=== PATIENT | male | born 1975 | race Caucasian/White ===

== ENCOUNTER 2022-07-07 18:41 | Emergency (ER) | payer OTHER ==
[2022-07-07 20:02] LABS: HEMOGLOBIN 15.8 gm/dl (14.0-17.5); RED BLOOD COUNT 5.25 M/UL (4.20-5.50); WHITE BLOOD COUNT 7.1 K/UL (4.5-11.0)
[2022-07-07 20:23] LABS: BUN/CREATININE RATIO 17 (0-10)
[2022-07-10] MEDS ORDERED: HYDROCHLOROTHIA25 MG PO (09:35)
[2022-07-10] MEDS ORDERED: HYDRALAZINE HCL10 MG PO (09:35)
== END 2022-07-08 00:47 | disposition left against medical advice (07) ==
LOC: ER1 18:41
PROVIDERS: Nurse Practitioner
DX: I10 Essential (primary) hypertension (principal); Z88.2 Allergy status to sulfonamides; Z79.899 Other long term (current) drug therapy
CPT/HCPCS: 71045; 80053; 81001; 82550; 82553; 84484; 85025; 93005; 99283

== ENCOUNTER 2022-07-10 20:33 | Inpatient (IN) | payer OTHER ==
[~2022-07-10] VITALS: Ht 177.8 cm; Wt 95.9 kg
[~2022-07-10 20:33] MED LIST: HYDRALAZINE HCL10 MG PO; HYDROCHLOROTHIA25 MG PO
[2022-07-10 21:33] LABS: HEMOGLOBIN 16.3 gm/dl (14.0-17.5); RED BLOOD COUNT 5.41 M/UL (4.20-5.50); WHITE BLOOD COUNT 6.3 K/UL (4.5-11.0)
[2022-07-10 22:00] LABS: BUN/CREATININE RATIO 17 (0-10)
[2022-07-11 01:58] LABS: RED BLOOD COUNT 5.3 M/UL (4.20-5.50); WHITE BLOOD COUNT 7.5 K/UL (4.5-11.0)
[2022-07-11 02:13] LABS: BUN/CREATININE RATIO 17 (0-10)
[2022-07-11] MEDS ORDERED: AMLODIPINE BESYL5 MG PO (09:34)
[2022-07-11] MEDS ORDERED: OMEGA-31000 MG PO (09:38)
[2022-07-11] MEDS ORDERED: GEMFIBROZIL600 MG PO (09:40)
[2022-07-11] MEDS ORDERED: METFORMIN HCL500 MG PO (09:41)
[2022-07-11] MEDS ORDERED: LEVOTHYROXINE25 MCG PO (09:41)
[2022-07-11] MEDS ORDERED: LISINOPRIL20 MG PO (09:42)
[2022-07-11] MEDS ORDERED: DOCUSATE SODIU100 MG PO (09:43)
[2022-07-11] MEDS ORDERED: CLONIDINE HCL0.1 MG PO (09:43)
[2022-07-12 04:16] LABS: HEMOGLOBIN 15.5 gm/dl (14.0-17.5); RED BLOOD COUNT 5.23 M/UL (4.20-5.50); WHITE BLOOD COUNT 9.3 K/UL (4.5-11.0)
[2022-07-12 04:56] LABS: BUN/CREATININE RATIO 17 (0-10)
[2022-07-13 04:34] LABS: BUN/CREATININE RATIO 16 (0-10)
[2022-07-13] MEDS ORDERED: HYGROTON TAB 2525 MG PO (09:48)
[2022-07-13] MEDS ORDERED: NITROGLYCERIN0.4 MG SL (09:48)
[2022-07-13] MEDS ORDERED: LOPRESSOR 25 MG25 MG PO (09:48)
[2022-07-13] MEDS ORDERED: AMLODIPINE BESYL5 MG PO (09:48)
== END 2022-07-13 11:59 | disposition home or self-care (01) | DRG 304 ==
LOC: ER1 20:33 → PROG CARE 22:14 → CDU 22:14 → PROG CARE 07-11 00:14 → CCU 07-11 18:00
PROVIDERS: Family Medicine; Internal Medicine; Physician Assistant; ADMIT Internal Medicine
PROC: B24BZZZ Ultrasonography of Heart with Aorta (ICD-10-PCS; principal; 2022-07-11)
PROC: 30233L1 Transfusion of Nonautologous Fresh Plasma into Peripheral Vein, Percutaneous Approach (ICD-10-PCS; 2022-07-12)
DX: I16.1 Hypertensive emergency (principal); J96.01 Acute respiratory failure with hypoxia; T78.3XXA Angioneurotic edema, initial encounter; E66.9 Obesity, unspecified; E78.5 Hyperlipidemia, unspecified; E03.9 Hypothyroidism, unspecified; I10 Essential (primary) hypertension; E11.9 Type 2 diabetes mellitus without complications; E87.6 Hypokalemia; E78.1 Pure hyperglyceridemia; F17.220 Nicotine dependence, chewing tobacco, uncomplicated; Z79.899 Other long term (current) drug therapy; Z79.82 Long term (current) use of aspirin; Z82.49 Family history of ischemic heart disease and other diseases of the circulatory system; Z88.2 Allergy status to sulfonamides; Z79.84 Long term (current) use of oral hypoglycemic drugs; Z68.30 Body mass index [BMI] 30.0-30.9, adult
CPT/HCPCS: ECHO; 36415; 71045; 78452; 80048; 80053; 80061; 82550; 82553; 83036; 83735; 84132; 84484; 85025; 85027; 85610; 86900; 86901; 86927; 93005; 93017; 93306; 94760; 96365; 96366; 96374; 96375; 99285; A9502; G0378; J0360; J1200; J1650; J2785; J2920; J3480; J7040; P9017

== ENCOUNTER 2022-07-13 22:34 | Emergency (ER) | payer OTHER ==
[~2022-07-13 22:34] MED LIST changes: +AMLODIPINE BESYL5 MG PO; +CLONIDINE HCL0.1 MG PO; +DOCUSATE SODIU100 MG PO; +GEMFIBROZIL600 MG PO; +HYGROTON TAB 2525 MG PO; +LEVOTHYROXINE25 MCG PO; +LISINOPRIL20 MG PO; +LOPRESSOR 25 MG25 MG PO; +METFORMIN HCL500 MG PO; +NITROGLYCERIN0.4 MG SL; +OMEGA-31000 MG PO
== END 2022-07-14 01:00 | disposition left against medical advice (07) ==
LOC: ER1 22:34
DX: T78.40XA Allergy, unspecified, initial encounter (principal); K13.0 Diseases of lips; R40.2410 Glasgow coma scale score 13-15, unspecified time
CPT/HCPCS: 99282